=== PATIENT | female | born 1995 | race African-American/Black ===

== ENCOUNTER → 2016-11-26 | Outpatient (CLI) | payer OTHER ==
[~2016-11-26] VITALS: Ht 167.6 cm; Wt 59.4 kg
[~2016-11-26] MED LIST: IOHEXOL 300 MG/ML 50 ML VIAL. IJ ONE; MEDROXYPROGESTERONE PO
[2016-11-26 08:32] VITALS: BP 115/52
--- NOTE | 2016-11-26 11:05 | RAD ---
Indication infertility. Hysterosalpingography was explained to the patient. The risks of infection and bleeding were outlined. The patient understood the nature of the procedure and wished to proceed. A speculum was introduced into the vagina. The cervix was identified and cleansed. Hysterosalpingography catheter was passed into the uterine cavity and the balloon inflated. Approximately 20 cc of contrast was instilled. The uterus appeared normal. The fallopian tubes are identified and are patent. There is free spill on each side. 5 fluoroscopic images were obtained associated with the exam. Fluoroscopy time associated with the study was 0.8 minutes. IMPRESSION: Normal hysterosalpingogram
== END | disposition home or self-care (01) ==
LOC: RAD 07:52
PROVIDERS: ATTEND Family Medicine
DX: N97.9 Female infertility, unspecified (principal)
CPT/HCPCS: 58340; 74740; Q9967

== ENCOUNTER → 2017-02-01 | Outpatient (CLI) | payer OTHER ==
[2016-11-26 08:32] VITALS: BP 115/52
[~2017-02-01] MED LIST changes: -IOHEXOL 300 MG/ML 50 ML VIAL. IJ ONE
[2017-02-01 11:34] LABS: BASO % 1 % (0-3); EOS % 1 % (0-3); HEMATOCRIT 38.9 % (36.0-47.0); HEMOGLOBIN 13.4 g/dL (12.0-15.5); LYMPH % 38 % (24-48); MEAN CORPUSCULAR HEMOGLOBIN 30 pg (25-35); MEAN CORPUSCULAR HGB CONC 34 g/dL (31-37); MEAN CORPUSCULAR VOLUME 87 fL (79-100); MONO % 7 % (0-9); NEUT % 54 % (31-73); PLATELET COUNT 182 x10^3/uL (140-400); RED BLOOD COUNT 4.48 x10^6/uL (3.50-5.40); RED CELL DISTRIBUTION WIDTH 13.7 % (11.5-14.5); WHITE BLOOD COUNT 5.3 x10^3/uL (4.0-11.0)
[2017-02-02 00:10] LABS: HIV ANTIBODY Non Reactive (Non Reactive)
[2017-02-04 14:18] LABS: RPR REFLEX Non Reactive (Non Reactive)
== END | disposition home or self-care (01) ==
LOC: LAB 10:55
PROVIDERS: ATTEND Obstetrics & Gynecology
DX: Z32.01 Encounter for pregnancy test, result positive (principal)
CPT/HCPCS: 85025; 86593; 86701; 86702; 86703; 86762; 86850; 86900; 86901; 87340; 87341; 87535

== ENCOUNTER → 2017-02-13 | Outpatient (CLI) | payer OTHER ==
[2016-11-26 08:32] VITALS: BP 115/52
[2017-02-13 15:37] LABS: BASO # 0.1 x10^3/uL (0.0-0.2); BASO % 2 % (0-3); EOS % 2 % (0-3); HEMATOCRIT 40.3 % (36.0-47.0); HEMOGLOBIN 13.4 g/dL (12.0-15.5); LYMPH # 2.6 x10^3/uL (1.0-4.8); LYMPH % 59 % (24-48); MEAN CORPUSCULAR HEMOGLOBIN 29 pg (25-35); MEAN CORPUSCULAR HGB CONC 33 g/dL (31-37); MEAN CORPUSCULAR VOLUME 89 fL (79-100); MONO % 11 % (0-9); NEUT % 26 % (31-73); PLATELET COUNT 248 x10^3/uL (140-400); RED BLOOD COUNT 4.54 x10^6/uL (3.50-5.40); RED CELL DISTRIBUTION WIDTH 13.3 % (11.5-14.5); WHITE BLOOD COUNT 4.5 x10^3/uL (4.0-11.0)
== END | disposition home or self-care (01) ==
LOC: LAB 15:05
PROVIDERS: ATTEND Obstetrics & Gynecology
DX: O03.4 Incomplete spontaneous abortion without complication (principal)
CPT/HCPCS: 36415; 84702; 85025

== ENCOUNTER 2017-05-08 11:52 | Emergency (ER) | payer OTHER ==
[~2017-05-08] VITALS: Ht 167.6 cm; Wt 58.5 kg
[2017-05-08 12:54] LABS: BASO % 1 % (0-3); EOS % 0 % (0-3); HEMATOCRIT 43.4 % (36.0-47.0); HEMOGLOBIN 14.5 g/dL (12.0-15.5); LYMPH # 1.1 x10^3/uL (1.0-4.8); LYMPH % 32 % (24-48); MEAN CORPUSCULAR HEMOGLOBIN 29 pg (25-35); MEAN CORPUSCULAR HGB CONC 33 g/dL (31-37); MEAN CORPUSCULAR VOLUME 88 fL (79-100); MONO % 12 % (0-9); NEUT % 54 % (31-73); PLATELET COUNT 254 x10^3/uL (140-400); RED BLOOD COUNT 4.96 x10^6/uL (3.50-5.40); WHITE BLOOD COUNT 3.6 x10^3/uL (4.0-11.0)
[2017-05-08 13:06] LABS: CALCIUM 9.1 mg/dL (8.5-10.1); CREATININE 0.9 mg/dL (0.6-1.0); GFR 94.7; POTASSIUM 3.9 mmol/L (3.5-5.1)
[2017-05-08 14:15] VITALS: BP 116/85
--- NOTE | 2017-05-08 14:25 | PHYS DOC ---
Past Medical History Past Medical History: No Pertinent History Past Surgical History: No Surgical History Alcohol Use: None Drug Use: None Adult General Chief Complaint Chief Complaint: HYPERVENTILATION [facility] HPI Patient is a 22 year old female who presents with anxiety and hyperventilation. Patient states she was at school today doing a test when she became dizzy, she states her hands started to cramp and she could not move her fingers. Patient states they had to call the ambulance for her. Patient states she has previous history of anxiety but is not on medications. Patient denies any suicidal/homicidal ideations. She also states yesterday she was out with friends and had a lot of alcohol later vomited. Patient denies any abdominal pain, nausea, or vomiting in the ED. She is in no distress playing with the boyfriend. Review of Systems Review of Systems Constitutional: Denies fever or chills [] Eyes: Denies change in visual acuity, redness, or eye pain [] HENT: Denies nasal congestion or sore throat [] Respiratory: Denies cough or shortness of breath [] Cardiovascular: No additional information not addressed in HPI [] GI: Denies abdominal pain, nausea, vomiting, bloody stools or diarrhea [] : Denies dysuria or hematuria [] Musculoskeletal: Denies back pain or joint pain [] Integument: Denies rash or skin lesions [] Neurologic: Denies headache, focal weakness or sensory changes [] Pysch: Anxiety and hyperventilation All other systems were reviewed and found to be within normal limits, except as documented in this note. Allergies Allergies Allergies Coded Allergies Type Severity Reaction Last Updated Verified No Known Drug Allergies 11/26/16 No Physical Exam Physical Exam Constitutional: Well developed, well nourished, no acute distress, non-toxic appearance. [] HENT: Normocephalic, atraumatic, bilateral external ears normal, oropharynx moist, no oral exudates, nose normal. [] Eyes: PERRLA, EOMI, conjunctiva normal, no discharge. [] Neck: Normal range of motion, no tenderness, supple, no stridor. [] Cardiovascular:Heart rate regular rhythm, no murmur [] Lungs & Thorax: Bilateral breath sounds clear to auscultation [] Abdomen: Bowel sounds normal, soft, no tenderness, no masses, no pulsatile masses. [] Skin: Warm, dry, no erythema, no rash. [] Back: No tenderness, no CVA tenderness. [] Extremities: No tenderness, no cyanosis, no clubbing, ROM intact, no edema. [] Neurologic: Alert and oriented X 3, normal motor function, normal sensory function, no focal deficits noted. [] Psychologic: Affect normal, judgement normal, mood normal. [] Current Patient Data Vital Signs Vital Signs Date Time Temp Pulse Resp B/P (MAP) Pulse Ox O2 Delivery O2 Flow Rate FiO2 05/08/17 12:04 98.2 63 16 100 Room Air 98.2 Lab Values Laboratory Tests Test 05/08/17 12:50 05/08/17 13:31 White Blood Count 3.6 x10^3/uL (4.0-11.0) L Red Blood Count 4.96 x10^6/uL (3.50-5.40) Hemoglobin 14.5 g/dL (12.0-15.5) Hematocrit 43.4 % (36.0-47.0) Mean Corpuscular Volume 88 fL (79-100) Mean Corpuscular Hemoglobin 29 pg (25-35) Mean Corpuscular Hemoglobin Concent 33 g/dL (31-37) Red Cell Distribution Width 13.0 % (11.5-14.5) Platelet Count 254 x10^3/uL (140-400) Neutrophils (%) (Auto) 54 % (31-73) Lymphocytes (%) (Auto) 32 % (24-48) Monocytes (%) (Auto) 12 % (0-9) H Eosinophils (%) (Auto) 0 % (0-3) Basophils (%) (Auto) 1 % (0-3) Neutrophils # (Auto) 1.9 x10^3uL (1.8-7.7) Lymphocytes # (Auto) 1.1 x10^3/uL (1.0-4.8) Monocytes # (Auto) 0.4 x10^3/uL (0.0-1.1) Eosinophils # (Auto) 0.0 x10^3/uL (0.0-0.7) Basophils # (Auto) 0.0 x10^3/uL (0.0-0.2) Sodium Level 142 mmol/L (136-145) Potassium Level 3.9 mmol/L (3.5-5.1) Chloride Level 103 mmol/L (98-107) Carbon Dioxide Level 30 mmol/L (21-32) Anion Gap 9 (6-14) Blood Urea Nitrogen 9 mg/dL (7-20) Creatinine 0.9 mg/dL (0.6-1.0) Estimated GFR (Cockcroft-Gault) 94.7 Glucose Level 93 mg/dL (70-99) Calcium Level 9.1 mg/dL (8.5-10.1) POC Urine HCG, Qualitative Hcg negative (Negative) Laboratory Tests 05/08/17 12:50 Laboratory Tests 05/08/17 12:50 EKG EKG [] Radiology/Procedures Radiology/Procedures [] Course & Med Decision Making Course & Med Decision Making Pertinent Labs and Imaging studies reviewed. (See chart for details) Patient presented to the ED with symptoms consistent with anxiety and hyperventilation that occurred during a test at school. We did a CBC which shows a WBC of 3.6, she does not know her baseline. Recommended she follows up with PCP for this. BMP with no acute findings. She requested a test which was negative. She is in no distress and has been playing with the boyfriend. Recommended following up with [facility]. Adalid Disclaimer Dragon Disclaimer This electronic medical record was generated, in whole or in part, using a voice recognition dictation system. Departure Departure Impression: Primary Impression: Hyperventilation Additional Impression: Anxiety Disposition: HOME, SELF-CARE Condition: STABLE Referrals: BE SANCHEZ MD (PCP) Problem Qualifiers KELLEY RABAGO APRN May 08, 2017 14:25
== END 2017-05-08 14:34 | disposition home or self-care (01) ==
LOC: ER 11:52
DX: F41.9 Anxiety disorder, unspecified (principal); R06.4 Hyperventilation; R42 Dizziness and giddiness
CPT/HCPCS: 36415; 80048; 81025; 85025; 99284